=== PATIENT | female | born 1990 | race Hispanic/Latino ===

== ENCOUNTER → 2020-07-25 17:57 | Outpatient (CLI) | payer OTHER, SELFPAY | PROVIDERS: PCP Registered Nurse; Visit Provider Registered Nurse | DX: L03.90 Cellulitis, unspecified (principal) | CPT/HCPCS: 87070; 87075; 87076; 87205 ==

== ENCOUNTER → 2020-11-11 16:12 | Outpatient (CLI) | payer OTHER, SELFPAY ==
[2020-11-11 16:50] LABS: Add Manual Diff / Slide Review NO; Basophils Absolute Auto 100 /uL (0-100); Basophils Percent Auto 0.6 % (0-2); Eosinophils Absolute Auto 300 /uL (0-450); Eosinophils Percent Auto 2.7 % (2-4); Hematocrit 41.7 % (36-46); Hemoglobin 13.2 g/dL (12.0-16.0); Lymphocytes Absolute Auto 3100 /uL (1100-4500); Mean Corpuscular HGB Conc 31.6 % (30-36); Mean Corpuscular Hemoglobin 23.6 PG (26-34); Mean Corpuscular Volume 74.8 fL (80-100); Monocytes Absolute Auto 800 /uL (0-900); Monocytes Percent Auto 7.3 % (3-14); Neutrophils Absolute Auto 6800 /uL (1500-7000); Neutrophils Percent Auto 61.4 % (50-75); Platelet Count 453 X10^3/uL (150-400); Red Blood Cell Count 5.57 X10^6/uL (4.0-5.2); Red Cell Distribution Width 15.3 % (11.6-14.8); White Blood Cell Count 11.1 X10^3/uL (4.5-11.0)
[2020-11-11 17:15] LABS: Alanine Aminotransferase 37 IU/L (<35); Albumin 4.3 g/dL (3.5-5.0); Albumin Globulin Ratio 1.1 (1.0-2.8); Alkaline Phosphatase 83 U/L (38-126); Aspartate Aminotransferase 38 IU/L (14-36); BUN Creatinine Ratio 20.8 (6-22); Bilirubin Total 0.2 mg/dL (0.2-1.3); Blood Urea Nitrogen 11 mg/dL (7-17); Calcium 9.4 mg/dL (8.4-10.2); Carbon Dioxide 29 mmol/L (22-32); Chloride 103 mmol/L (98-107); Estimated Glomerular Filt Rate > 60.0 mL/min (>60); Globulin 3.9 g/dL (1.7-4.1); Glucose 108 mg/dL (70-100); HEMOLYSIS 23 (0-50); Potassium 4.1 mmol/L (3.4-5.1); Sodium 138 mmol/L (137-145); Total Protein 8.2 g/dL (6.3-8.2)
[2020-11-11 17:35] LABS: Free T4, Direct Thyroxine 0.91 ng/dL (0.78-2.19)
[2020-11-11 17:49] LABS: Thyroid Stimulating Hormone 1.68 uIU/mL (0.47-4.68)
== END ==
PROVIDERS: PCP Registered Nurse; Referring Provider Registered Nurse; Visit Provider Registered Nurse
DX: F41.8 Other specified anxiety disorders (principal); J45.909 Unspecified asthma, uncomplicated
CPT/HCPCS: 36415; 80053; 84439; 84443; 85025

== ENCOUNTER 2023-06-10 15:22 | Emergency (ER) | payer OTHER, SELFPAY ==
[2023-06-10 16:00] VITALS: BP 132/86; PULSE 71; RESP 16; TEMP 37; O2SAT 95; BMI 40.7
--- NOTE | 2023-06-10 18:23 | ED.EYEPROB ---
HPI - Eye Problem General Chief complaint: Eye Problems Stated complaint: pink eye Time Seen by Provider: 06/10/23 18:11 Source: patient Mode of arrival: Ambulatory History of Present Illness HPI Narrative: 32-year-old female presents for possible pinkeye. Patient states that for the last 2 days she has had irritation, watering, crusting discharge in her left eye. Denies vision changes. Wears glasses at baseline. Related Data Home Medications Medication Instructions Recorded Confirmed biotin PO 07/27/21 11/17/21 magnesium chloride PO 07/27/21 11/17/21 omega-3 fatty acids [Fish Oil] PO 07/27/21 11/17/21 prenat.vits,lori,jcd-ntcg-tqbup PO 07/27/21 11/17/21 Previous Rx's Medication Instructions Recorded albuterol sulfate 90 mcg/actuation 2 puff inhalation Q4-6H PRN 07/25/20 aerosol inhaler shortness of breath or wheezing #6.7 grams cetirizine 10 mg tablet (Zyrtec) 10 mg PO DAILY #90 tabs 07/27/21 montelukast 10 mg tablet 10 mg PO DAILY #90 tabs 07/27/21 (Singulair) clindamycin phosphate 1 % topical 1 applic topical BID #60 grams 11/21/21 gel norelgestromin 150 mcg-e.estradiol 1 patch transdermal Q7D 11/21/21 35 mcg/24 hr weekly transderm patch control patch #3 ea erythromycin 5 mg/gram (0.5 %) eye 0.5 inch EYE-LEFT Q8H 5 days #3.5 06/10/23 ointment grams Allergies Allergy/AdvReac Type Severity Reaction Status Date / Time penicillin G Allergy Mild Rash Verified 11/17/21 11:55 amoxicillin Allergy Unknown Hives Verified 06/10/23 16:08 Review of Systems Review of Systems Narrative: See HPI Patient History Medical History Encounter for counseling regarding contraception Obesity, morbid, BMI 40.0-49.9 Irregular intermenstrual bleeding Cyst Cellulitis Family History Father Diabetes mellitus History of heart disease Hypertension History of heart attack Mother Diabetes mellitus Hypertension Grandfather Alcoholism Social History Smoking Status: Current some day smoker Tobacco: How many years used: 10 quit status: not considering quitting alcohol intake: current substance use type: marijuana Smoking Status: Current some day smoker Exam Initial Vital Signs Initial Vital Signs: Vital Signs Temperature 98.6 F 06/10/23 16:00 Pulse Rate 71 06/10/23 16:00 Respiratory Rate 16 06/10/23 16:00 Blood Pressure 132/86 06/10/23 16:00 Pulse Oximetry 95 06/10/23 16:00 Oxygen Delivery Method Room Air 06/10/23 16:00 Const: Awake, alert, no acute distress, nontoxic appearing Eye: Right eye unremarkable, left eye with minimal conjunctival injection, no purulent discharge, EOMI, PERRL Skin: Warm, Dry, intact, no rashes Neuro: AO x3, CN II-XII grossly intact, moves all extremities Course Vital Signs Vital signs: Vital Signs - 8 hr 06/10/23 16:00 Temperature 98.6 F Pulse Rate 71 Respiratory Rate 16 Blood Pressure 132/86 Pulse Oximetry 95 Oxygen Delivery Method Room Air MDM - Eye Problem Differential Diagnosis Differential diagnosis: Likely corneal abrasion, conjunctivitis and acute iritis MDM Narrative Medical decision making narrative: Symptoms consistent with bacterial conjunctivitis of left eye. Physical exam is overall fairly benign, however especially since it was the weekend we will discharge with prescription for antibiotic ointment. Discharge Plan Departure Patient Disposition: Home Clinical Impression: Conjunctivitis Instructions: DI for Conjunctivitis Activity Restrictions/Additional Instructions: Use the antibiotics as prescribed. Avoid touching her eyes. Wear glasses and not contacts while you were using the antibiotics. If you notice that your eye is crusted over you may use a warm compress to gently remove any crusting. If you notice any vision changes follow up with the eye doctor or return to the emergency department. Prescriptions: New erythromycin 5 mg/gram (0.5 %) ointment 0.5 inch EYE-LEFT Q8H 5 Days Qty: 3.5 0RF No Action albuterol sulfate 90 mcg/actuation HFA aerosol inhaler 2 puff inhalation Q4-6H PRN (Reason: shortness of breath or wheezing) Qty: 6.7 3RF omega-3 fatty acids [Fish Oil] PO biotin PO magnesium chloride PO prenat.vits,lori,ymn-nyxv-tmced PO cetirizine [Zyrtec] 10 mg tablet 10 mg PO DAILY Qty: 90 3RF montelukast [Singulair] 10 mg tablet 10 mg PO DAILY Qty: 90 3RF norelgestromin-ethin.estradiol 150-35 mcg/24 hr patch weekly 1 patch transdermal Q7D Qty: 3 3RF Rx Instructions: apply once weekly for 3 weeks of a 4-week cycle clindamycin phosphate 1 % gel 1 applic topical BID Qty: 60 1RF Rx Instructions: Apply to skin lesions in inner thigh area Referrals: Eunice Sheldon DO [Primary Care Provider] - Stand Alone Forms: Patient Portal/API
== END 2023-06-10 18:32 | disposition home or self-care (01) ==
PROVIDERS: Emergency Provider Emergency Medicine; PCP Family Medicine
DX: H10.9 Unspecified conjunctivitis (principal)
CPT/HCPCS: 99281; 99283